=== PATIENT | male | born 1985 | race Caucasian/White ===

== ENCOUNTER 2017-03-03 07:11 | Emergency (ER) | payer BC ==
[~2017-03-03] VITALS: Ht 177.8 cm; Wt 74.8 kg
[2017-03-03 07:14] VITALS: TEMP 36.5; Ht 177.8 cm; Wt 74.8 kg
[2017-03-03] MEDS ORDERED: BENZ100C84 PO (07:19)
[2017-03-03] MEDS ORDERED: ALBUT/IPRATROP 3MG/0.5MG NEB 3 ML VIAL INH STA (07:27)
--- NOTE | 2017-03-03 07:48 | EMERGENCY ROOM VISIT NOTE ---
ED Visit Note First contact with patient: 07:17 CHIEF COMPLAINT: Cough 1 week HISTORY OF PRESENT ILLNESS: This 31-year-old male patient presents to the emergency department complaining of one-week history of nonproductive cough. The patient states the cough spontaneously began, and denies other associated recent illness. The patient reports intermittent coughing spells, which make it difficult for him to catch his breath. He denies dyspnea except for when he is coughing. The patient states approximately one month ago, he was ill with a similar cough, and was seen at [facility] prescribed Tessalon Perldipak. The patient states he has been taking this over the past week, however has not noticed improvement in his symptoms. The patient has also tried DayQuil and NyQuil over the past 24 hours without improvement in his symptoms. Patient states the cold air at work seem to worsen the cough. He states he awoke, feeling pretty well this morning, however upon getting to work, the cough began worsening. The patient is here with his girlfriend from work. The patient states cough is nonproductive of sputum or blood. He denies fever, chills, nausea, vomiting, sore throat, congestion, headache, dizziness, lightheadedness , chest pain, abdominal pain, or other associated symptoms. REVIEW OF SYSTEMS: A 10-system review of systems was performed with positives and pertinent negatives listed in the history of present illness. All other systems were reviewed and are negative. ALLERGIES: None MEDICATIONS: None PMH: None SOCIAL HISTORY: The patient lives locally with his girlfriend. Denies drug or alcohol use. The patient does admit to smoking 1/2 pack cigarettes per day. He is employed at [employer]. PHYSICAL EXAM: VITALS: Vitals are noted on the nurse's note and reviewed by myself. Vital signs stable. GENERAL: This is a 31-year-old male, in no acute distress, nondiaphoretic, well- developed well-nourished. SKIN: The skin was without rashes, erythema, edema, or bruising. There is no tenting of the skin. Capillary reflex less than 2 seconds. HEAD: Normocephalic atraumatic. EARS: External auditory canals clear, tympanic membranes pearly ward without erythema or effusion bilaterally. EYES: Pupils equal round and reactive to light and accommodation. Conjunctivae without injection, sclerae without icterus. Extraocular movements intact. NOSE: Patent, turbinates without inflammation or discharge. No sinus tenderness. MOUTH: Mucous membranes moist. Tonsils are not enlarged. Pharynx without erythema or exudate. Uvula midline. Airway patent. Tongue does not deviate. NECK: Supple without nuchal rigidity. No lymphadenopathy. No thyromegaly. Cervical spine is nontender. No JVD. HEART: Regular rate and rhythm without murmurs gallops or rubs. LUNGS: Mild wheezing and slight decrease in breath sounds in bases. Otherwise, clear to auscultation bilaterally without wheezes, rales or rhonchi. No dullness to percussion. No retractions or accessory muscle use. ABDOMEN: Positive bowel sounds x 4. Normal tympanic percussion. Soft, nontender, without masses or organomegaly. Nicolas sign negative. No guarding or rebound tenderness. MUSCULOSKELETAL: No muscle atrophy, erythema, or edema noted. Full range of motion without joint tenderness in all extremities. No tenderness to palpation. Normal gait. Strength 5/5 throughout. NEURO: Patient was alert and oriented to person place and time. Normal sensation to light and sharp touch. Deep tendon reflexes 2+ throughout. No focal neurological deficits. RADIOLOGY: Chest X-Ray: FINDINGS: The bones soft tissues and hemidiaphragms are normal. The cardiomediastinal silhouette is normal. The lungs are clear. The pulmonary vasculature is normal. IMPRESSION: Negative chest. EMERGENCY DEPARTMENT COURSE: The patient was seen and evaluated as above. Chest X-ray was ordered and reviewed by myself with radiologist interpretation. The patient was given 1 DuoNeb treatment and did note improvement in his symptoms. I reviewed CXR results with him and discussed discharge instructions. The patient does not currently have a PCP, so I did ask the fishing worker to get him established with a PCP. The patient was discharged home in good condition. DIFFERENTIAL DIAGNOSIS: Pneumonia, bronchitis, URI, tracheobronchitis, pleural effusion, pneumothorax, pulmonary embolism, COPD, Asthma, malignancy, and others DIAGNOSIS: Tracheobronchitis DISCHARGE INSTRUCTIONS & TREATMENT: You have been prescribed a Medrol Dosepak. This is a steroid which will help decrease your inflammation, redness, and itch. Take the medicine as prescribed. Take the ENTIRE 6 day course of the steroids. Please use benzonatate and ProAir as needed and as directed for coughing and wheezing. Please follow up with a primary care provider for further evaluation and management of your cough, especially as this is the second cough you have had in 1 month. Please return to the emergency department for worsening symptoms, including productive cough, chest pain, shortness of breath, fever, chills, nausea, vomiting, coughing up blood, or other concerning symptoms. Current/Historical Medications Scheduled Benzonatate (Tessalon Perles), 100 MG PO Q4H Methylprednisolone (Medrol Dosepak), 0 PO DAILY Scheduled PRN Albuterol Sulfate (Proair Respiclick), 2 PUFFS PO Q4 PRN for Cough Benzonatate (Tessalon Perles), 200 MG PO TID PRN for Cough Allergies Coded Allergies: No Known Allergies (Unverified , 03/03/17) Vital Signs Date Time Temp Pulse Resp B/P (MAP) Pulse Ox O2 Delivery O2 Flow Rate FiO2 03/03/17 08:16 62 18 111/77 99 Room Air 03/03/17 07:20 Room Air 03/03/17 07:14 36.5 77 18 126/87 97 Room Air Medications Administered Medications (Trade) Dose Ordered Sig/Neal Route Start Time Stop Time Status Last Admin Dose Admin Albuterol/ Ipratropium (Duoneb) 3 ml NOW STAT INH 03/03/17 07:27 03/03/17 07:30 DC 03/03/17 07:50 3 ML Departure Information Impression Primary Impression: Tracheobronchitis Additional Impression: Cough Dispostion Home / Self-Care Condition GOOD Prescriptions Albuterol Sulfate (Proair Respiclick) 108 Mcg/Act Aer 2 PUFFS PO Q4 Y for Cough, #1 INHALER Prov: Sarai Alonzo PA-C 03/03/17 Benzonatate (Tessalon Perles) 200 Mg Cap 200 MG PO TID Y for Cough, #30 CAP Prov: Sarai Alonzo PA-C 03/03/17 Methylprednisolone (MEDROL DOSEPAK) 4 Mg Bishop 0 PO DAILY, #1 PKT Prov: Sarai Alonzo PA-C 03/03/17 Referrals No Doctor, Assigned (PCP) Patient Instructions Chest Cold (Bronchitis) - [facility], [facility] Additional Instructions You have been prescribed a Medrol Dosepak. This is a steroid which will help decrease your inflammation, redness, and itch. Take the medicine as prescribed. Take the ENTIRE 6 day course of the steroids. Please use benzonatate and ProAir as needed and as directed for coughing and wheezing. Please follow up with a primary care provider for further evaluation and management of your cough, especially as this is the second cough you have had in 1 month. Please return to the emergency department for worsening symptoms, including productive cough, chest pain, shortness of breath, fever, chills, nausea, vomiting, coughing up blood, or other concerning symptoms. Problem Qualifiers
--- NOTE | 2017-03-03 07:56 | DIAGNOSTIC IMAGING REPORT ---
CHEST 2 VIEWS ROUTINE CLINICAL HISTORY: cough dyspnea COMPARISON STUDY: No previous studies for comparison. FINDINGS: The bones soft tissues and hemidiaphragms are normal. The cardiomediastinal silhouette is normal. The lungs are clear. The pulmonary vasculature is normal. IMPRESSION: Negative chest. The above report was generated using voice recognition software. It may contain grammatical, syntax or spelling errors. Electronically signed by: Mika Butcher M.D. 03/03/2017 7:54 AM Dictated Date/Time: 03/03/2017 7:51 AM
[2017-03-03] MEDS ORDERED: METH4PAK PO (08:12)
[2017-03-03] MEDS ORDERED: BENZ1CAP90 PO (08:12)
[2017-03-03] MEDS ORDERED: ALBU18002 PO (08:12)
[2017-03-03 08:16] VITALS: BP 111/77; PULSE 62; O2SAT 99
== END 2017-03-03 08:41 | disposition home or self-care (01) ==
LOC: C.EDB 07:13 → C.EDA 08:41
DX: J40 Bronchitis, not specified as acute or chronic (principal); F17.210 Nicotine dependence, cigarettes, uncomplicated

== ENCOUNTER 2017-10-31 11:07 | Emergency (ER) | payer BC ==
[~2017-10-31] VITALS: Ht 180.3 cm; Wt 81.7 kg
[~2017-10-31 11:07] MED LIST: ALBU18002 PO; BENZ100C84 PO
[2017-10-31 11:10] VITALS: TEMP 36.6; Ht 180.3 cm; Wt 81.7 kg
[2017-10-31] MEDS ORDERED: SODIUM CHLORIDE 0.9% 1000ML 1,000 ML IV STA (11:23)
[2017-10-31] MEDS ORDERED: PRLSR20 PO (11:23)
[2017-10-31] MEDS ORDERED: MECL1TAB42 PO (11:23)
[2017-10-31 11:47] VITALS: O2SAT 100
[2017-10-31 12:01] LABS: BASO ABS # 0.07 K/uL (0-0.2); EOS % 2.4 %; EOS ABS # 0.17 K/uL (0-0.5); HEMATOCRIT 40.4 % (42-52); HEMOGLOBIN 14.2 g/dL (14.0-18.0); IG# 0.04 K/uL (0.00-0.02); LYMPH % 23.6 %; LYMPH ABS # 1.69 K/uL (1.2-3.4); MEAN CELL VOLUME 90.8 fL (80-100); MEAN CORPUSCULAR HEMOGLOBIN 31.9 pg (25-34); MEAN CORPUSCULAR HGB CONC 35.1 g/dl (32-36); MEAN PLATELET VOLUME 9.1 fL (7.4-10.4); MONO % 6.7 %; MONO ABS # 0.48 K/uL (0.11-0.59); NEUT % 65.7 %; NEUT ABS # 4.71 K/uL (1.4-6.5); PLATELET COUNT 281 K/uL (130-400); RED CELL DISTRIBUTION WIDTH CV 12.8 % (11.5-14.5); RED CELL DISTRIBUTION WIDTH SD 42.8 fL (36.4-46.3); WHITE BLOOD COUNT 7.16 K/uL (4.8-10.8)
[2017-10-31 12:12] LABS: PTT PATIENT 23.8 SECONDS (21.0-31.0)
--- NOTE | 2017-10-31 12:25 | DIAGNOSTIC IMAGING REPORT ---
HEAD WITHOUT CONTRAST (CT) CLINICAL HISTORY: 32 years-old Male presenting with EVALUATE WEAKNESS, dizziness, weakness. TECHNIQUE: Multidetector CT imaging of the head was performed without the use of intravenous contrast. IV contrast: None. A dose lowering technique was used consistent with the principles of ALARA (as low as reasonably achievable). COMPARISON: None. CT DOSE (mGy.cm): The estimated cumulative dose is 537.48 mGy.cm. FINDINGS: Assistant Curator topogram: Unremarkable. Ventricles and sulci normal in size. Brain parenchyma normal in appearance with preserved ward-white differentiation. No mass effect or midline shift. No hemorrhage or acute territorial infarct. No extra-axial fluid collection. Paranasal sinuses and mastoid air cells clear. Calvarium intact. IMPRESSION: 1. No acute intracranial abnormality. Electronically signed by: Sung Cyr M.D. 10/31/2017 12:23 PM Dictated Date/Time: 10/31/2017 12:22 PM
[2017-10-31 12:29] LABS: ALBUMIN 4.3 gm/dl (3.4-5.0); ALT/SGPT 30 U/L (12-78); AST/SGOT 16 U/L (15-37); BLOOD UREA NITROGEN 17 mg/dl (7-18); CALCIUM 8.8 mg/dl (8.5-10.1); CARBON DIOXIDE 26 mmol/L (21-32); GLUCOSE 103 mg/dl (70-99); POTASSIUM 3.6 mmol/L (3.5-5.1); SODIUM 135 mmol/L (136-145)
[2017-10-31 12:41] LABS: ALKALINE PHOSPHATASE 73 U/L (45-117); TOTAL PROTEIN 7.9 gm/dl (6.4-8.2)
[2017-10-31 14:11] VITALS: BP 128/86; PULSE 66; O2SAT 100
--- NOTE | 2017-10-31 17:02 | EMERGENCY ROOM VISIT NOTE ---
History Report prepared by Clyde: Edwina Dexter Under the Supervision of: Dr. Geovany Arredondo D.O. First contact with patient: 11:13 Chief Complaint: DIZZY Stated Complaint: DIZZY, HEAVYNESS IN CHEST Nursing Triage Summary: Pt has been dizzy for a month and a half, was dx with vertigo by PCP, Francisco J monique. Took two hours ago with no relief. History of Present Illness The patient is a 32 year old male who presents to the Emergency Room with complaints of intermittent dizziness for the past 2 months. The patient was was diagnosed with vertigo, 5 weeks ago and was put on meclizine. The patient rook meclizine two hours ago with no relief. The patient was diagnosed with vertigo by his PCP and he states he did not have any imaging. He denies any modifying or worsening factors. He reports his has nor triggering factors it just comes on "randomly". He notes some intermittent ringing in his right ear. He reports his chest heaviness is only present when he gets "really dizzy". He last had an episode of chest heaviness at 1030 am this morning. He describes his dizziness as "room moving" and feeling like he is going to "pass out". He denies any passing out. Pt denies headache, weakness, numbness, change in vision, fevers, chest pain, shortness of breath, nausea, vomiting, diarrhea, pain with urination , and melena. The patient reports recent surgery on his left middle finger. Source of History: patient Onset: 2 months ago Position: other (generalized) Quality: other (dizziness) Timing: intermittent Associated Symptoms: + chest pain, No weakness Review of Systems See HPI for pertinent positives & negatives. A total of 10 systems reviewed and were otherwise negative. Past Medical & Surgical Medical Problems: (1) No Known Active Medical Problems Family History Patient reports no known family medical history. Social History Smoking Status: Current Every Day Smoker Marital Status: Housing Status: lives with significant other Occupation Status: employed Current/Historical Medications Scheduled Omeprazole (Prilosec), 20 MG PO DAILY Scheduled PRN Meclizine Hcl (Meclizine Hcl), 1 TAB PO TID PRN for Dizziness or Vertigo Allergies Coded Allergies: Shellfish Allergy (Unverified Adverse Reaction, Intermediate, ITCHING,RASH , 10/31/17) Physical Exam Vital Signs Date Time Temp Pulse Resp B/P (MAP) Pulse Ox O2 Delivery O2 Flow Rate FiO2 10/31/17 14:11 66 18 128/86 100 10/31/17 13:00 66 18 113/71 100 Room Air 10/31/17 12:08 64 10/31/17 11:47 100 Room Air 10/31/17 11:44 64 18 117/74 100 Room Air 73 130/81 75 142/89 10/31/17 11:10 36.6 67 18 143/86 99 Room Air Physical Exam GENERAL: Sitting up in bed, alert, well appearing, well nourished, no distress, non-toxic EYE EXAM: normal conjunctiva. PERRL and EOM's intact. OROPHARYNX: no exudate, no erythema, lips, buccal mucosa, and tongue normal and mucous membranes are moist NECK: supple, no nuchal rigidity, no adenopathy, non-tender LUNGS: Clear to auscultation. Normal chest wall mechanics HEART: no murmurs, S1 normal and S2 normal ABDOMEN: abdomen soft, non-tender, normo-active bowel sounds, no masses, no rebound or guarding. BACK: Back is symmetrical on inspection and there is no deformity, no midline tenderness, no CVA tenderness. SKIN: no rashes and no bruising UPPER EXTREMITIES: upper extremities are grossly normal. LOWER EXTREMITIES: No pitting edema. NEURO EXAM: Normal sensorium, cranial nerves II-XII intact, normal speech, no weakness of arms, no weakness of legs. No drift. Finger to nose intact. Sensation intact. Rapid alternating movements of upper extremities intact, ambulating without difficulty. Medical Decision & Procedures ER Provider Diagnostic Interpretation: Radiology results as stated below per my review and the radiologist's interpretation: HEAD WITHOUT CONTRAST (CT) FINDINGS: Telegraph Mechanic topogram: Unremarkable. Ventricles and sulci normal in size. Brain parenchyma normal in appearance with preserved ward-white differentiation. No mass effect or midline shift. No hemorrhage or acute territorial infarct. No extra-axial fluid collection. Paranasal sinuses and mastoid air cells clear. Calvarium intact. IMPRESSION: 1. No acute intracranial abnormality. Electronically signed by: Sung Cyr M.D. Laboratory Results 10/31/17 11:42 Red Blood Count 4.45, Mean Corpuscular Volume 90.8, Mean Corpuscular Hemoglobin 31.9, Mean Corpuscular Hemoglobin Concent 35.1, Mean Platelet Volume 9.1, Neutrophils (%) (Auto) 65.7, Lymphocytes (%) (Auto) 23.6, Monocytes (%) (Auto) 6.7, Eosinophils (%) (Auto) 2.4, Basophils (%) (Auto) 1.0, Neutrophils # (Auto) 4.71, Lymphocytes # (Auto) 1.69, Monocytes # (Auto) 0.48, Eosinophils # (Auto) 0.17, Basophils # (Auto) 0.07 10/31/17 11:42 Test 10/31/17 11:40 10/31/17 11:42 10/31/17 12:38 Bedside Glucose 101 mg/dl (70-99) White Blood Count 7.16 K/uL (4.8-10.8) Red Blood Count 4.45 M/uL (4.7-6.1) Hemoglobin 14.2 g/dL (14.0-18.0) Hematocrit 40.4 % (42-52) Mean Corpuscular Volume 90.8 fL (80-100) Mean Corpuscular Hemoglobin 31.9 pg (25-34) Mean Corpuscular Hemoglobin Concent 35.1 g/dl (32-36) Platelet Count 281 K/uL (130-400) Mean Platelet Volume 9.1 fL (7.4-10.4) Neutrophils (%) (Auto) 65.7 % Lymphocytes (%) (Auto) 23.6 % Monocytes (%) (Auto) 6.7 % Eosinophils (%) (Auto) 2.4 % Basophils (%) (Auto) 1.0 % Neutrophils # (Auto) 4.71 K/uL (1.4-6.5) Lymphocytes # (Auto) 1.69 K/uL (1.2-3.4) Monocytes # (Auto) 0.48 K/uL (0.11-0.59) Eosinophils # (Auto) 0.17 K/uL (0-0.5) Basophils # (Auto) 0.07 K/uL (0-0.2) RDW Standard Deviation 42.8 fL (36.4-46.3) RDW Coefficient of Variation 12.8 % (11.5-14.5) Immature Granulocyte % (Auto) 0.6 % Immature Granulocyte # (Auto) 0.04 K/uL (0.00-0.02) Prothrombin Time 10.2 SECONDS (9.0-12.0) Prothromb Time International Ratio 1.0 (0.9-1.1) Activated Partial Thromboplast Time 23.8 SECONDS (21.0-31.0) Partial Thromboplastin Ratio 0.9 D-Dimer 220 ug/L FEU (0-500) Anion Gap 7.0 mmol/L (3-11) Est Creatinine Clear Calc Drug Dose 126.6 ml/min Estimated GFR () 131.4 Estimated GFR (Non- 113.4 BUN/Creatinine Ratio 18.7 (10-20) Calcium Level 8.8 mg/dl (8.5-10.1) Total Bilirubin 0.5 mg/dl (0.2-1) Direct Bilirubin 0.2 mg/dl (0-0.2) Aspartate Amino Transf (AST/SGOT) 16 U/L (15-37) Alanine Aminotransferase (ALT/SGPT) 30 U/L (12-78) Alkaline Phosphatase 73 U/L (45-117) Troponin I < 0.015 ng/ml (0-0.045) Total Protein 7.9 gm/dl (6.4-8.2) Albumin 4.3 gm/dl (3.4-5.0) Thyroid Stimulating Hormone (TSH) 0.722 uIu/ml (0.300-4.500) Urine Color YELLOW Urine Appearance CLEAR (CLEAR) Urine pH 6.0 (4.5-7.5) Urine Specific [place] 1.005 (1.000-1.030) Urine Protein NEG (NEG) Urine Glucose (UA) NEG (NEG) Urine Ketones NEG (NEG) Urine Occult Blood NEG (NEG) Urine Nitrite NEG (NEG) Urine Bilirubin NEG (NEG) Urine Urobilinogen NEG (NEG) Urine Leukocyte Esterase NEG (NEG) Laboratory results per my review. Medications Administered Medications (Trade) Dose Ordered Sig/Neal Route Start Time Stop Time Status Last Admin Dose Admin Sodium Chloride 1,000 ml @ 999 mls/hr Q1H1M STAT IV 10/31/17 11:23 10/31/17 12:23 DC 10/31/17 11:47 999 MLS/HR ECG Per My Interpretation Indication: weakness Rate (beats per minute): 60 Rhythm: sinus rhythm Findings: no ectopy, other (normal intervals) ED Course ED COURSE: Vital signs were reviewed and showed normal The patients medical record was reviewed The above diagnostic studies were performed and reviewed. ED treatments and interventions as stated above. 1115: The patient was evaluated in room C12B. A complete history and physical examination was performed. 1123: Ordered Sodium Chloride 1000 ml @ 999 mls/hr IV. 1332: I updated the patient on his test results. 1402: Upon reevaluation, the patient is resting comfortably.I discussed my findings with the patient and he understands and agrees with the treatment plan. Based on the patients age, coexisting illnesses, exam and lab findings the decision to treat as an inpatient was made. The patient remained stable while under my care. The patient appeared well at the time of discharge. Medical Decision Differenital diagnosis includes etiologies such as benign positional vertigo, dehydration, hypovolemia, anemia, tumor, infection, hypoglycemia, electrolyte abnormalities, cardiac sources, intracerebral event, toxicologic, neurologic, as well as others were entertained. Patient is a 32-year-old male who presents to ER for persistent dizziness which has been present for the past 3 months. He notes it comes and goes each day. No exacerbating or remitting factors. Neuro exam is intact. CT head was negative. No cerebellar signs or symptoms. He does have some mild ringing in his right ear to suggest possible Mnire's disease. CBC along with BMP, LFTs, bilirubin TSH was normal. Troponin was negative. D-dimer was negative. UA was unremarkable. I do favor this likely peripheral in nature. Patient was updated at bedside. Was discharged to follow-up with PCP as an outpatient. Discussed with Pt concerning signs and symptoms to watch out for. Pt was instructed to follow up with their PCP and discussed with the patient their option to return to the ED at anytime for persistent or worsening symptoms. The appropriate anticipatory guidance and out-patient management, including indications for return to the emergency department, were explained at length to the patient and understood. Medication Reconcilliation Current Medication List: was personally reviewed by me Blood Pressure Screening Patient's blood pressure: Normal blood pressure Impression Primary Impression: Dizziness Scribe Attestation The scribe's documentation has been prepared under my direction and personally reviewed by me in its entirety. I confirm that the note above accurately reflects all work, treatment, procedures, and medical decision making performed by me. Departure Information Dispostion Home / Self-Care Referrals No Doctor, Assigned (PCP) Forms HOME CARE DOCUMENTATION FORM, IMPORTANT VISIT INFORMATION Patient Instructions ED Dizziness ANGELES, [facility] Additional Instructions Please follow up with your primary care doctor with in the next 24 hours. Any worsening of your symptoms, please return to the ED immediately. This includes any fevers greater than 100.4, worsening pain, chest pain, shortness breath, persistent nausea, vomiting, unable to eat or drink, or any other concerning signs or symptoms from your standpoint. Please take Antivert as previously prescribed. Please follow-up with ENT as listed below.
== END 2017-10-31 14:12 | disposition home or self-care (01) ==
LOC: C.EDB 11:09 → C.EDC 14:12
DX: R42 Dizziness and giddiness (principal); H93.11 Tinnitus, right ear; F17.200 Nicotine dependence, unspecified, uncomplicated; Z91.013 Allergy to seafood